=== PATIENT | female | born 1985 | race Caucasian/White ===

== ENCOUNTER 2016-10-31 18:32 | Emergency (ER) | payer OTHER ==
[~2016-10-31] VITALS: Ht 175.3 cm; Wt 129.1 kg
[2016-10-31 18:39] VITALS: TEMP 37.1; Ht 175.3 cm; Wt 129.1 kg
[2016-10-31] MEDS ORDERED: RABIES IMMUNE GLOBULIN (HUMAN) 150 INTER.UNIT/ML 2 ML VIAL IM. ONE (18:45)
[2016-10-31] MEDS ORDERED: AMOXICIL/CLAVU 875MG HOME PACK PO ONE (18:45)
[2016-10-31] MEDS ORDERED: RABIES VACCINE (IMOVAX) HUMAN DIPL CELL 2.5 INTER.UNIT/ML SYR IM. ONE (18:45)
[2016-10-31] MEDS ORDERED: AMOX875T PO (18:51)
--- NOTE | 2016-10-31 19:06 | EMERGENCY ROOM VISIT NOTE ---
ED Visit Note First contact with patient: 18:41 CHIEF COMPLAINT: Animal bite HISTORY OF PRESENT ILLNESS: This 31 yo patient presents to the emergency department after they sustained a wild mouse bite to both hands. The patient states she thought the mouse instead but bit her. The patient reports that the animal's immunizations are unknown. The patient complains of mild 2/10 pain at the site of the injury. Pain is worse with movement. Tetanus status is up to date. REVIEW OF SYSTEMS: A 6 system review of systems was completed with positives and pertinent negatives listed in the HPI. ALLERGIES: None MEDICATIONS: none PMH: Eczema PHYSICAL EXAM: Vital Signs reviewed, see Nurse's notes, vital signs stable. GENERAL: Pleasant female, awake, alert, well appearing, no acute distress. Non toxic in appearance. MUSCULOSKELETAL: Examination of both hands reveals a puncture type of wound. There is no swelling on inspection. Palpation of both hands reveals no tenderness. No significant crepitus or warmth noted. No joint space, tendon, or vascular involvement. Distal pulses intact. SKIN: No signs of infection. NEURO: No sensory or motor deficits noted over all dermatomes and myotomes tested. EMERGENCY DEPARTMENT COURSE AND DECISION MAKING: I examined the patient. The patient presented with an isolated bite wound as described as above. By the history, there is concern for rabies exposure. No signs of infection on examination. ER Treatment: Antibiotic prophylaxis is indicated. The area was cleansed with Betadine and sterile saline and dressed with bacitracin and a bandage. Patient was given rabies and advised to come back in days 3 7 and 14 for completion of the series. Discharge instructions reviewed. Discharged in stable condition. DIAGNOSIS: Wild animal bite DISCHARGED INSTRUCTIONS: As below Current/Historical Medications Scheduled Amoxicillin & Pot Clavulanate (Augmentin 875-125 mg), 1 TAB PO BID Allergies Coded Allergies: No Known Allergies (Verified , 07/11/11) Vital Signs Date Time Temp Pulse Resp B/P Pulse Ox O2 Delivery O2 Flow Rate FiO2 10/31/16 18:39 37.1 106 18 148/106 98 Room Air Departure Information Impression Primary Impression: Need for immunization against rabies Additional Impressions: Animal bite of hand Need for rabies vaccination Dispostion Home / Self-Care Condition GOOD Prescriptions Amoxicillin & Pot Clavulanate (Augmentin 875-125 mg) 1 Tab Tab 1 TAB PO BID for 9 Days, #18 TAB Prov: Fina Vera .WALE 10/31/16 Forms WORK / SCHOOL INSTRUCTIONS, HOME CARE DOCUMENTATION FORM, IMPORTANT VISIT INFORMATION Patient Instructions My [facility], ED Bite Animal General, Rabies Virus Strain [id number] antigen Propiolactone Inactivated ... Additional Instructions Antibiotic ointment and bandage to the areas until healed. Follow up with family doctor or return for any signs of infection (increasing redness, swelling , drainage, or fever). Keep covered when in sun until fully healed then SPF 50 or higher until scar healed. Amoxicillin Clavulanate (Augmentin) 875mg: Take one pill twice daily for 10 days for your infection. All antibiotics can cause diarrhea. If this occurs and you feel worse or it does not resolve in 1-2 days follow up with your doctor or return to the Emergency Department as this could be signs of serious underlying problems. Any medication can cause an allergic reaction, stop the pills immediately and return to the ER for rash, hives, breathing difficulties, or swelling. Ibuprofen(Motrin, Advil) may be used for fever or pain. Use 600mg every six hours as needed. Take with food. Avoid using more than 2400mg in a 24 hour period. Do not use 2400mg per day for more than three consecutive days without physician direction. Prolonged inappropriate use can lead to stomach upset or ulcers. (AND/OR) Acetaminophen(Tylenol) may be used for fever or pain. Use 1000mg every six hours as needed. Avoid using more than 4000mg in a 24 hour period. Warm compresses to the affected area 4 times daily for 15-20 minutes. Rest and drink plenty of fluids. Continue current medications. Return to the ER for severe pain, persistent fevers, spreading redness, or any worsening of your condition. Follow up with your primary physician within 2-3 days for a recheck of the current condition. Return to ER days 3, 7 and 14 for completion of the rabies series. Today is day 0. Problem Qualifiers
[2016-10-31 19:52] VITALS: BP 159/90; PULSE 92; O2SAT 95
== END 2016-10-31 20:03 | disposition home or self-care (01) ==
LOC: C.EDB 18:35 → C.EDD 20:03
DX: Z23 Encounter for immunization (principal); S61.459A Open bite of unspecified hand, initial encounter; Z20.3 Contact with and (suspected) exposure to rabies; W53.01XA Bitten by mouse, initial encounter

== ENCOUNTER 2016-11-04 18:21 | Emergency (ER) | payer OTHER ==
[~2016-11-04] VITALS: Ht 175.3 cm; Wt 130.0 kg
[~2016-11-04 18:21] MED LIST: AMOX875T PO
[2016-11-04 18:24] VITALS: TEMP 36.7; Ht 175.3 cm; Wt 130.0 kg
[2016-11-04] MEDS ORDERED: RABIES VACCINE (IMOVAX) HUMAN DIPL CELL 2.5 INTER.UNIT/ML SYR IM. ONE (19:00)
[2016-11-04 19:17] VITALS: BP 131/85; PULSE 95; O2SAT 96
--- NOTE | 2016-11-05 23:54 | EMERGENCY ROOM VISIT NOTE ---
ED Visit Note First contact with patient: 18:37 Chief Complaint: Rabies immunization. History of Present Illness: Ms. Ratliff is a 31-year-old white female who ambulates into the ED and request her second immunization injection. Patient reports 3 days ago she received her first rabies immunization injection and her immunoglobulin injections for exposure to rabies. She reports after the immunizations her immunization sites were sore and she had some mild nausea without vomiting. That lasted for approximately 1.5 days and then self resolved. Currently she is pain-free and reports she is feeling well today. Physical Examination: Vital Signs: Date Time Temp Pulse Resp B/P Pulse Ox O2 Delivery O2 Flow Rate FiO2 11/04/16 19:17 95 20 131/85 96 11/04/16 18:24 36.7 101 16 164/112 97 GENERAL: 31-year-old female in no acute distress, nontoxic-appearing, afebrile and hemodynamically stable. Patient did appear ill anxious and I asked her about her concerns she did report that she thought she would need the same amount of immunoglobulin shots as she had during her first visit. NEUROLOGICAL: Awake, alert and oriented to person, place and time. Answering questions appropriately and following commands. ED Course: Patient is assessed as noted above. Patient was given her second rabies immunization injections by nursing staff. Patient was educated about tonight's findings and instructed on her treatment plan; she verbalizes understanding and agreement with this plan. Clinical Impression: Rabies vaccinations. Disposition: Patient discharged home in stable condition; prior to departure she was reassessed and subjectively reported she was feeling the same. Plan: Patient was encouraged to use ibuprofen or Tylenol as needed for mild symptoms. Patient was encouraged to return to the ED for her next 2 immunizations. Patient was encouraged return the ED for severe/uncontrolled symptoms, signs of allergic reaction or any new/concerning symptoms.
== END 2016-11-04 19:35 | disposition home or self-care (01) ==
LOC: C.EDB 18:23 → C.EDD 19:35
DX: Z23 Encounter for immunization (principal); Z20.3 Contact with and (suspected) exposure to rabies

== ENCOUNTER → 2017-11-12 | Outpatient (CLI) | payer OTHER | END | disposition home or self-care (01) | LOC: C.LABSPEC 15:46 | PROVIDERS: ATTEND Physician Assistant | DX: Z11.8 Encounter for screening for other infectious and parasitic diseases (principal); Z11.3 Encounter for screening for infections with a predominantly sexual mode of transmission ==

== ENCOUNTER → 2017-11-12 | Outpatient (CLI) | payer OTHER | END | disposition home or self-care (01) | LOC: C.PAPS 16:27 | PROVIDERS: ATTEND Physician Assistant | DX: Z01.419 Encounter for gynecological examination (general) (routine) without abnormal findings (principal) ==